=== PATIENT | female | born 1985 | race Caucasian/White ===

== ENCOUNTER 2018-08-08 12:11 | Emergency (ER) | payer BC ==
[~2018-08-08] VITALS: Ht 180.3 cm; Wt 56.8 kg
[~2018-08-08 12:11] MED LIST: INVA1INJ IV; MAXA5TAB10 PO; ORTHTAB5 PO
[2018-08-08 13:05] LABS: BASO % 0.5 % (0.0-1.0); EOS # 0.2 10^3/uL (0.0-0.50); EOS % 3.7 % (0.0-3.0); HEMATOCRIT 40.3 % (36.0-47.0); HEMOGLOBIN 13.4 g/dl (12.0-15.5); LYMPH # 1.6 10^3/uL (1.5-4.5); LYMPH % 29.5 % (24.0-44.0); MEAN CORPUSCULAR HGB CONC 33.3 g/dl (32.0-36.5); MEAN CORPUSCULAR VOLUME 90.2 fl (80.0-96.0); MONO # 0.4 10^3/uL (0.0-0.8); MONO % 6.8 % (0.0-5.0); NEUTROPHILS # 3.2 10^3/uL (1.8-7.7); NEUTROPHILS % 59.1 % (36.0-66.0); PLATELET COUNT, AUTOMATED 296 10^3/uL (150-450); RED BLOOD COUNT 4.47 10^6/uL (4.00-5.40); WHITE BLOOD COUNT 5.5 10^3/uL (4.0-10.0)
[2018-08-08] MEDS ORDERED: VITAD1000T PO (13:07)
[2018-08-08] MEDS ORDERED: PREN29TA4 PO (13:07)
[2018-08-08] MEDS ORDERED: ALLE24TA7 PO (13:07)
[2018-08-08] MEDS ORDERED: MONT10TA2 PO (13:07)
[2018-08-08] MEDS ORDERED: FLON27.5 (13:07)
[2018-08-08 13:35] LABS: ALBUMIN 3.8 GM/DL (3.2-5.2); ALT/SGPT 20 U/L (12-78); BILIRUBIN,TOTAL 0.5 MG/DL (0.2-1.0); BLOOD UREA NITROGEN 17 MG/DL (7-18); CALCIUM LEVEL 9.1 MG/DL (8.5-10.1); CARBON DIOXIDE LEVEL 25 MEQ/L (21-32); CHLORIDE LEVEL 111 MEQ/L (98-107); CREATININE FOR GFR 0.75 MG/DL (0.55-1.30); GLOMERULAR FILTRATION RATE > 60.0 (>60); GLUCOSE, FASTING 82 MG/DL (70-100); POTASSIUM SERUM 4.2 MEQ/L (3.5-5.1); SODIUM LEVEL 141 MEQ/L (136-145); TOTAL PROTEIN 6.6 GM/DL (6.4-8.2)
[2018-08-08 15:13] LABS: HCG, SERUM QUALITATIVE NEGATIVE (NEGATIVE)
--- NOTE | 2018-08-08 15:24 | REP ---
Clinical: Migraine and dizziness . Comparison: None . Findings: The ventricles, sulci, and cisterns are normal in position and appearance. Josue-white differentiation is maintained. No acute intracranial hemorrhage, mass/mass effect, pathology or trauma/injury. No evidence for acute infarction. No extra-axial fluid collection. Calvarium is intact. Paranasal sinuses and mastoid air cells are clear. Impression: Normal noncontrast head CT. No evidence for acute intracranial pathology or trauma/injury. Electronically Signed by Colin Perez MD 08/08/2018 03:15 P
[2018-08-08] MEDS ORDERED: diphenhydrAMINE INJ 50MG/ML VIAL (J1200) IV ONE (15:30)
[2018-08-08] MEDS ORDERED: ACETAMINOPHEN 500 MG TAB PO ONE (15:30)
[2018-08-08] MEDS ORDERED: MECLIZINE 25 MG TABLET PO ONE (15:30)
[2018-08-08] MEDS ORDERED: KETOROLAC 30 MG/ML VIAL (J1885) IV ONE (15:30)
[2018-08-08] MEDS ORDERED: MECL-68 PO (16:20)
[2018-08-08 16:45] VITALS: BP 119/77
--- NOTE | 2018-08-08 19:42 | ECGEPIP ---
[facility] - ED Test Date: 2018-08-08 Pat Name: DEMI CORTES Department: Room: - Gender: Female Molder: polo : 1985 Requested By: Jeremy Claros Order Number: [id number] Reading MD: Jeremy Claros Measurements Intervals Fiatt Rate: 59 P: 64 MS: 164 QRS: 58 QRSD: 101 T: 12 QT: 387 QTc: 386 Interpretive Statements SINUS BRADYCARDIA NONSPECIFIC ST T WAVE CHANGES NO OLD ECG FOR COMPARISON Electronically Signed on 08-08-2018 19:41:56 EDT by Jeremy Claros
== END 2018-08-08 16:45 | disposition home or self-care (01) ==
LOC: M ED 12:11
DX: H81.10 Benign paroxysmal vertigo, unspecified ear (principal); R00.1 Bradycardia, unspecified; G43.909 Migraine, unspecified, not intractable, without status migrainosus; Z87.59 Personal history of other complications of pregnancy, childbirth and the puerperium; Z79.899 Other long term (current) drug therapy; Z91.89 Other specified personal risk factors, not elsewhere classified
CPT/HCPCS: 36415; 70450; 80053; 84702; 84703; 85025; 93005; 96374; 96375; 99284; J1200; J1885

== ENCOUNTER → 2018-08-28 | Outpatient (CLI) | payer BC ==
[~2018-08-28] MED LIST changes: +ALLE24TA7 PO; +FLON27.5; +MECL-68 PO; +MONT10TA2 PO; +PREN29TA4 PO; +VITAD1000T PO
--- NOTE | 2018-08-30 08:39 | REP ---
MRI brain without contrast: History: Persistent headache and vertigo . Comparison study: August 08, [address] Technique: Axial and sagittal imaging planes are utilized for T1 and T2-weighted scans. Sequences include spin-echo, fast spin echo, FLAIR, and diffusion weighted sequences. MRI findings: No bony calvarial lesion is seen. Craniocervical junction and upper cervical cord are normal in appearance. There is no MR evidence of significant paranasal sinus disease. No intraorbital abnormality is seen. The lateral, third, and fourth ventricles are normal in size and position. Josue-white differentiation pattern is intact above and below the tentorium. There is no evidence of intracranial hemorrhage. No mass, infarction, extra-axial fluid collection or midline shift is seen. No abnormal white matter lesion is seen. Impression: Negative noncontrast brain MRI study. Electronically Signed by Vasyl Wilks MD 08/30/2018 08:31 A
== END ==
LOC: M RAD 08:58
PROVIDERS: ATTEND Family Medicine
DX: G44.52 New daily persistent headache (NDPH) (principal); R42 Dizziness and giddiness

== ENCOUNTER → 2021-06-05 | Outpatient (REF) | payer OTHER ==
[~2021-06-05] MED LIST changes: +CHOL100029 PO; -MECL-68 PO; +MECL1TAB31 PO; -MONT10TA2 PO; +MONT10TA97 PO; -VITAD1000T PO
[2021-06-05 11:47] LABS: ALBUMIN 3.8 GM/DL (3.2-5.2); ALT/SGPT 29 U/L (12-78); BILIRUBIN,TOTAL 0.3 MG/DL (0.2-1.0); BLOOD UREA NITROGEN 20 MG/DL (7-18); CALCIUM LEVEL 9.1 MG/DL (8.5-10.1); CARBON DIOXIDE LEVEL 30 MEQ/L (21-32); CHLORIDE LEVEL 110 MEQ/L (98-107); CHOLESTEROL LEVEL 273 MG/DL (<200); CHOLESTEROL RISK RATIO 3.592 (<5); CREATININE FOR GFR 0.79 MG/DL (0.55-1.30); FREE T4 0.98 NG/DL (0.76-1.46); GLOMERULAR FILTRATION RATE > 60.0 (>60); GLUCOSE, FASTING 91 MG/DL (70-100); HDL CHOLESTEROL 76 MG/DL (>40); LDL CHOLESTEROL 184 MG/DL (<100); NON-HDL-C 197 MG/DL; POTASSIUM SERUM 4.6 MEQ/L (3.5-5.1); SODIUM LEVEL 142 MEQ/L (136-145); TOTAL PROTEIN 6.9 GM/DL (6.4-8.2); TRIGLYCERIDES LEVEL 65 MG/DL (<150)
[2021-06-05 11:49] LABS: BASO # 0.1 10^3/uL (0.0-0.2); EOS # 0.3 10^3/uL (0.0-0.5); EOS % 5.4 % (0.0-3.0); FOLLICLE STIMULATING HORMONE 10.1 mIU/mL; HEMOGLOBIN 13.7 g/dl (12.0-15.5); LUTEINIZING HORMONE 8.4 mIU/mL; LYMPH # 1.8 10^3/uL (1.5-5.0); LYMPH % 37.6 % (24.0-44.0); MEAN CORPUSCULAR HEMOGLOBIN 28.7 pg (27.0-33.0); MEAN CORPUSCULAR HGB CONC 32.6 g/dl (32.0-36.5); MEAN CORPUSCULAR VOLUME 88.1 fl (80.0-96.0); MONO # 0.3 10^3/uL (0.0-0.8); MONO % 7.1 % (2.0-8.0); NEUTROPHILS # 2.3 10^3/uL (1.5-8.5); NEUTROPHILS % 48.3 % (36.0-66.0); PLATELET COUNT, AUTOMATED 470 10^3/uL (150-450); PROGESTERONE 0.41 NG/ML; PROLACTIN 12.6 NG/ML; RED BLOOD COUNT 4.77 10^6/uL (4.00-5.40); WHITE BLOOD COUNT 4.8 10^3/uL (4.0-10.0)
== END ==
LOC: M SFHCCLAY 07:52
PROVIDERS: ATTEND Family Medicine
DX: Z00.00 Encounter for general adult medical examination without abnormal findings (principal); J30.89 Other allergic rhinitis; R61 Generalized hyperhidrosis

== ENCOUNTER → 2022-06-06 | Outpatient (REF) | payer OTHER ==
[2022-06-06 13:31] LABS: BASO # 0.1 10^3/uL (0.0-0.2); BASO % 1.1 % (0.0-1.0); EOS # 0.4 10^3/uL (0.0-0.5); EOS % 6.7 % (0.0-3.0); HEMATOCRIT 40.4 % (36.0-47.0); LYMPH # 2.3 10^3/uL (1.5-5.0); LYMPH % 43.1 % (24.0-44.0); MEAN CORPUSCULAR HGB CONC 32.2 g/dl (32.0-36.5); MONO # 0.4 10^3/uL (0.0-0.8); MONO % 7.9 % (2.0-8.0); NEUTROPHILS # 2.2 10^3/uL (1.5-8.5); NEUTROPHILS % 40.8 % (36.0-66.0); PLATELET COUNT, AUTOMATED 337 10^3/uL (150-450); RED BLOOD COUNT 4.49 10^6/uL (4.00-5.40); WHITE BLOOD COUNT 5.4 10^3/uL (4.0-10.0)
[2022-06-06 14:03] LABS: ALBUMIN 3.8 G/DL (3.2-5.2); ALKALINE PHOSPHATASE 45 U/L (46-116); ALT/SGPT 21 U/L (7.0-40); AST/SGOT 15 U/L (<34); BILIRUBIN,TOTAL 0.6 MG/DL (0.3-1.2); BLOOD UREA NITROGEN 17 MG/DL (9-23); CALCIUM LEVEL 9.1 MG/DL (8.5-10.1); CARBON DIOXIDE LEVEL 28 MMOL/L (20-31); CHLORIDE LEVEL 108 MMOL/L (98-107); CHOLESTEROL LEVEL 256 MG/DL (<200); CHOLESTEROL RISK RATIO 3.46 (<5); CREATININE FOR GFR 0.79 MG/DL (0.55-1.30); GLOMERULAR FILTRATION RATE > 60.0 (>60); GLUCOSE, FASTING 87 MG/DL (60-100); HDL CHOLESTEROL 73.9 MG/DL (>40); LDL CHOLESTEROL 168.5 MG/DL (<100); NON-HDL-C 182.1 MG/DL; POTASSIUM SERUM 4.4 MMOL/L (3.5-5.1); SODIUM LEVEL 139 MMOL/L (136-145); TOTAL PROTEIN 6.4 G/DL (5.7-8.2); TRIGLYCERIDES LEVEL 68 MG/DL (<150)
== END ==
LOC: M SFHCCLAY 07:29
PROVIDERS: ATTEND Family Medicine
DX: Z00.00 Encounter for general adult medical examination without abnormal findings (principal); R61 Generalized hyperhidrosis; J30.89 Other allergic rhinitis

== ENCOUNTER → 2023-07-24 | Outpatient (CLI) | payer OTHER ==
[~2023-07-24] MED LIST changes: +MECL-209 PO; -MECL1TAB31 PO
== END ==
LOC: M WHC 12:45
PROVIDERS: ATTEND Advanced Practice Midwife
DX: N92.0 Excessive and frequent menstruation with regular cycle (principal)

== ENCOUNTER → 2023-08-12 | Outpatient (REF) | payer OTHER ==
[2023-08-12 17:29] LABS: FREE T4 1.12 NG/DL (0.89-1.76)
[2023-08-12 17:30] LABS: ESTRADIOL 173.9 PG/ML; PROGESTERONE 0.82 NG/ML; THYROID STIMULATING HORMONE 0.903 uIU/ML (0.55-4.78)
[2023-08-14 23:07] LABS: TESTOSTERONE FREE (DIRECT) 2.1 pg/mL (0.0-4.2); VITAMIN D 1,25 DIHYDROXY 77.7 pg/mL (24.8-81.5)
== END ==
LOC: M PLALAB 14:16
PROVIDERS: ATTEND Advanced Practice Midwife
DX: N92.0 Excessive and frequent menstruation with regular cycle (principal); R61 Generalized hyperhidrosis; N95.1 Menopausal and female climacteric states

== ENCOUNTER → 2023-08-21 | Outpatient (REF) | payer OTHER ==
[2023-08-25 12:43] LABS: HPV APTIMA Not Detected (Not Detected)
== END ==
LOC: M PLALAB 10:02
PROVIDERS: ATTEND Advanced Practice Midwife
DX: N92.0 Excessive and frequent menstruation with regular cycle (principal); Z12.4 Encounter for screening for malignant neoplasm of cervix
CPT/HCPCS: 87624; 88305; G0123

== ENCOUNTER 2023-11-24 06:53 | Day surgery (SDC) | payer OTHER ==
[~2023-11-24] VITALS: Ht 154.9 cm; Wt 73.7 kg
[~2023-11-24 06:53] MED LIST changes: +ALLE1DRO2 OU; +CHEL50TA2 PO; +CLIN1GEL22 TOP; +ECHI500C PO; +ELDE350C PO; +MAGN64TASA PO; +MAXI0.1S3 OD; +RIZA10TA64 PO; +rhodiola PO
[2023-11-24] MEDS ORDERED: LR 1,000 ML IV SCH ×2 (07:00→09:05)
[2023-11-24] MEDS ORDERED: TYLE650T38 PO (07:13)
[2023-11-24 07:29] LABS: HEMATOCRIT 40.6 % (36.0-47.0); HEMOGLOBIN 13.6 g/dl (12.0-15.5); MEAN CORPUSCULAR HEMOGLOBIN 29.5 pg (27.0-33.0); MEAN CORPUSCULAR HGB CONC 33.5 g/dl (32.0-36.5); MEAN CORPUSCULAR VOLUME 88.1 fl (80.0-96.0); PLATELET COUNT, AUTOMATED 398 10^3/uL (150-450); RED BLOOD COUNT 4.61 10^6/uL (4.00-5.40); WHITE BLOOD COUNT 6.4 10^3/uL (4.0-10.0)
[2023-11-24] MEDS ORDERED: ACETAMINOPHEN 1000MG 100ML IV BAG As Ordered ONE (07:32)
[2023-11-24] MEDS ORDERED: MIDAZOLAM INJ 2MG/2ML VIAL As Ordered ONE (07:32)
[2023-11-24] MEDS ORDERED: fentaNYL 100 MCG/2 ML INJECTION As Ordered ONE (07:32)
[2023-11-24] MEDS ORDERED: propofoL 200 MG/20 ML VIAL As Ordered ONE (07:32)
[2023-11-24] MEDS ORDERED: LIDOCAINE 2% 100MG/5ML SDV (FOR ANES.) As Ordered ONE (07:32)
[2023-11-24] MEDS: SILVER NITRATE APPLICATOR (1 = QTY 10) As Ordered ONE (08:02)
[2023-11-24] MEDS ORDERED: ONDANSETRON 4MG 2ML VIAL As Ordered ONE (08:41)
[2023-11-24] MEDS ORDERED: ONDANSETRON 4MG 2ML VIAL IV PRN (09:05)
[2023-11-24] MEDS ORDERED: fentaNYL 100 MCG/2 ML INJECTION IV PRN (09:05)
[2023-11-24] MEDS ORDERED: PERC5TAB12 PO (09:07)
[2023-11-24] MEDS ORDERED: IBUP80TA PO (09:09)
[2023-11-24] MEDS ORDERED: COLA100C5 PO (09:10)
[2023-11-24 10:01] VITALS: BP 121/78; TEMP 97.9; O2SAT 100
== END 2023-11-24 10:25 | disposition home or self-care (01) ==
LOC: M SDC 06:53
PROVIDERS: ATTEND Obstetrics & Gynecology
DX: N92.0 Excessive and frequent menstruation with regular cycle (principal); I10 Essential (primary) hypertension; E11.9 Type 2 diabetes mellitus without complications; L40.9 Psoriasis, unspecified; J45.909 Unspecified asthma, uncomplicated; Z79.899 Other long term (current) drug therapy; J30.2 Other seasonal allergic rhinitis
CPT/HCPCS: 36415; 58563; 85027; 86850; 86900; 86901; 88305; J0131; J1100; J2250; J2405; J3010

== ENCOUNTER → 2025-02-15 | Outpatient (REF) | payer OTHER ==
[~2025-02-15] MED LIST changes: +COLA100C5 PO; +IBUP80TA PO; +PERC5TAB12 PO; +TYLE650T38 PO
[2025-02-17 17:27] LABS: HPV APTIMA Not Detected (Not Detected)
== END ==
LOC: M SFHCWAGY 09:13
PROVIDERS: ATTEND Advanced Practice Midwife
DX: Z11.51 Encounter for screening for human papillomavirus (HPV) (principal)
CPT/HCPCS: 87624; G0123

== ENCOUNTER → 2025-02-15 | Outpatient (CLI) | payer OTHER | LOC: M WHC 15:00 | PROVIDERS: ATTEND Advanced Practice Midwife | DX: Z12.31 Encounter for screening mammogram for malignant neoplasm of breast (principal); R92.323 Mammographic fibroglandular density, bilateral breasts ==